=== PATIENT | female | born 1955 | race Two or more races ===

== ENCOUNTER 2022-05-09 06:04 | Emergency (ER) | payer MEDICARE, MEDICAID ==
[~2022-05-09] VITALS: Ht 152.4 cm; Wt 90.0 kg
[~2022-05-09 06:04] MED LIST: IBUP-2071 PO; INSLAN SQ; INSNOV SQ; MUSCLE RELAXER PO
[2022-05-09] MEDS ORDERED: CEPH500C2 PO (06:56)
[2022-05-09] MEDS ORDERED: LISI20TA24 PO (06:56)
[2022-05-09] MEDS ORDERED: PREG75CA75 PO (06:56)
[2022-05-09] MEDS ORDERED: TIZA-194 PO (06:56)
[2022-05-09 07:36] LABS: BASOPHILS % (AUTO) 0.6 % (0.0-2.0); EOSINOPHILS % (AUTO) 0.5 % (1.0-6.0); HEMATOCRIT 39.8 % (36-46); HEMOGLOBIN 13.1 g/dL (12.0-16.0); LYMPHOCYTES # (AUTO) 2.8 K/uL (1.0-4.8); LYMPHOCYTES % (AUTO) 32.7 % (22.0-44.0); MEAN CORPUSCULAR HEMOGLOBIN 28.6 pg (26.0-34.0); MEAN CORPUSCULAR HGB CONC 32.9 G/dL (31.0-37.0); MEAN CORPUSCULAR VOLUME 87 fL (80-100); MONOCYTES # (AUTO) 0.6 K/uL (0.1-1.0); MONOCYTES % (AUTO) 6.4 % (2.0-9.0); NEUTROPHILS # (AUTO) 5.2 K/uL (1.8-7.7); NEUTROPHILS % (AUTO) 59.8 % (40.0-70.0); PLATELET COUNT (AUTO) 303 K/uL (150-450); RED BLOOD CELL COUNT(AUTO) 4.58 MIL/uL (4.00-5.20); RED CELL DISTRIBUTION WIDTH 14.6 % (11.5-14.5)
[2022-05-09 07:48] LABS: ANION GAP 2 mmol/L (8-16); CARBON DIOXIDE 31 mmol/L (22-29); CHLORIDE 104 mmol/L (98-107); CREATININE 0.79 mg/dL (0.60-1.30); GLUCOSE,RANDOM 140 mg/dL (70-110); POTASSIUM 4.2 mmol/L (3.5-5.1); SODIUM SERUM 137 mmol/L (136-145); UREA NITROGEN, BLOOD 17 mg/dL (7-18)
[2022-05-09 07:49] LABS: INR 0.9 (0.9-1.1); PROTHROMBIN TIME 9.8 SEC (9.4-11.6)
[2022-05-09 07:51] LABS: GLOMERULAR FILTR. RATE CALC > 60 mL/min (>60)
[2022-05-09 07:52] LABS: B-TYPE NATRIURETIC PEPTIDE 16 pg/mL (0-100)
[2022-05-09 07:54] LABS: ALANINE AMINOTRANSFERASE 42 U/L (12-78); ALBUMIN 2.9 g/dL (3.4-5.0); ALKALINE PHOSPHATASE 74 U/L (46-116); ASPARTATE AMINOTRANSFERASE 18 U/L (15-37); BILIRUBIN,TOTAL 0.2 mg/dL (0.1-1.0)
[2022-05-09 09:51] VITALS: BP 195/81
== END 2022-05-09 10:38 | disposition home or self-care (01) ==
LOC: EMS 06:05
DX: I10 Essential (primary) hypertension (principal); R42 Dizziness and giddiness; E11.9 Type 2 diabetes mellitus without complications; Z90.49 Acquired absence of other specified parts of digestive tract
CPT/HCPCS: 70450; 71045; 80053; 82962; 83880; 84484; 85025; 85610; 85730; 93005; 99285